=== PATIENT | male | born 1960 | race Caucasian/White ===

== ENCOUNTER → 2016-08-24 | Day surgery (SDC) | payer OTHER ==
[~2016-08-24] VITALS: Ht 185.4 cm; Wt 91.4 kg
[~2016-08-24] MED LIST: ASPI1TAB69 PO; CHLORHEXIDINE GLUCONATE 2 % 1 PACK (2 CLOTHS) TOPICAL PRN; DO NOT ADM ANY ANTICOAGULANT DRUGS PRN; EPINEPHrine HCL (1:1000) 1 MG/ML VIAL ONE; INSULIN HUMAN REGULAR 1,000 UNITS/10 ML VIAL SQ PRN; LACTATED RINGER'S 1000 ML IV PRN; LOVA20TA PO; METOPROLOL TARTRATE 25 MG TAB PO PRN; MIDAZOLAM HCL 2 MG/2 ML VIAL ONE; ONDANSETRON HCL 4 MG/2 ML VIAL IV PUSH ONE; PLAV75TA29 PO; POVIDONE IODINE 5% (ANTISEPSIS KIT) 4 APPLICATIONS EACH NARE PRN; PROPOFOL 200 MG/20 ML AMP IV ONE; SODIUM CHLORID 0.9% 500 ML IV PRN; ZANT150T2 PO
[2016-08-24 06:22] VITALS: BP 150/90; PULSE 88; RESP 16; TEMP 98; O2SAT 95
[2016-08-24 06:38] LABS: AUTOMATED NEUTROPHIL # 1.9 TH/MM3 (1.8-7.7); BASOPHIL % 0.8 % (0.0-2.0); EOSINOPHIL # 0.1 TH/MM3 (0-0.4); EOSINOPHIL % 2.2 % (0.0-4.0); HEMATOCRIT 40.4 % (39.0-51.0); HEMO FLAGS DIFF FINAL; LYMPH % 26.8 % (9.0-44.0); LYMPHOCYTE # 0.8 TH/MM3 (1.0-4.8); MEAN CELL VOLUME 84.1 FL (80.0-100.0); MEAN CORPUSCULAR HEMOGLOBIN 28.3 PG (27.0-34.0); MEAN CORPUSCULAR HGB CONC 33.7 % (32.0-36.0); NEUT % 59.2 % (16.0-70.0); PLATELET COUNT 138 TH/MM3 (150-450); RED BLOOD COUNT 4.81 MIL/MM3 (4.50-5.90); RED CELL DISTRIBUTION WIDTH 14.5 % (11.6-17.2); WHITE BLOOD COUNT 3.2 TH/MM3 (4.0-11.0)
[2016-08-24 06:48] LABS: INTERNATIONAL NORMALIZED RATIO 1.1 RATIO; PROTHROMBIN TIME - PATIENT 11.9 SEC (9.8-11.6)
--- NOTE | 2016-08-24 09:06 | MR ---
cc: KODAK CANDELARIO M.D. DATE 08/24/2016 PROCEDURE Fiberoptic bronchoscopy, flexible. REASON FOR BRONCHOSCOPY Left lower lobe lung nodules, etiology unclear. PROCEDURE NOTE Fiberoptic bronchoscopy performed via LMA. Vocal cords intact. Trachea moderately hyperemic. Shannan sharp. Right mainstem bronchus, right upper, middle and lower lobes, left main bronchus, left upper and lower lobes inspected. No obstructive pathology or mass lesion seen. Washings obtained from both sides of the tracheobronchial tree for routine TB, fungal cultures as well as cytological exam. [place] biopsies left lower lobe obtained for cytological exam. Micro brush using a sheathed catheter were obtained for cultures as well. Procedure well tolerated. The patient transferred to recovery in stable condition. IMPRESSION 1. Mild to moderate tracheobronchitis 2. No obstruction. No mass lesion. 3. Samples obtained as above. 4. Procedure well tolerated. 5. The patient transferred recovery in stable condition. Kodak Candelario MD WWW/MIRIAN /8:19 AM /8:59 AM
[2016-08-24 09:55] VITALS: BP 130/76; PULSE 83; RESP 18; TEMP 97.5; O2SAT 98
--- NOTE | 2016-08-24 20:56 | EKG ---
Date Performed: 08/24/2016 Time Performed: 07:07:44 PTAGE: 55 years EKG: Sinus rhythm NORMAL ECG PREVIOUS TRACING : 08/04/2005 13.15 Compared to prior tracing no significant change DOCTOR: Diego Dye Interpretating Date/Time 08/24/2016 20:55:01
== END | disposition home or self-care (01) ==
LOC: HSDC 05:14
PROVIDERS: ATTEND Internal Medicine Sleep Medicine
DX: R91.1 Solitary pulmonary nodule (principal); D86.9 Sarcoidosis, unspecified; J40 Bronchitis, not specified as acute or chronic; I25.10 Atherosclerotic heart disease of native coronary artery without angina pectoris
CPT/HCPCS: 00520; 31623; 85025; 85610; 85730; 87015; 87070; 87071; 87102; 87116; 87205; 87206; 88112; 93005; J0171; J2250; J2405; J3010; 88305; 94150